=== PATIENT | female | born 1995 | race Two or more races ===

== ENCOUNTER 2024-03-22 04:46 | Inpatient (IN) | payer OTHER ==
[~2024-03-22] VITALS: Ht 152.4 cm; Wt 77.6 kg
[2024-03-22] VITALS (9 sets, daily range): BP systolic 102–139; BP diastolic 62–86
[2024-03-22] MEDS ORDERED: RINGERS SOLUTION,LACTATED 1,000 ML IV SCH (05:00)
[2024-03-22 05:52] LABS: HEMATOCRIT 34.1 % (36.0-45.00); HEMOGLOBIN 11.5 g/dL (12.0-15.00); MEAN CELL VOLUME 81.4 fL (80.00-100.00); MEAN CORPUSCULAR HEMOGLOBIN 27.4 pg (27.00-32.0); MEAN CORPUSCULAR HGB CONC 33.6 g/dl (32.0-36.0); PLATELET COUNT 177 K/uL (150-450); RED BLOOD COUNT 4.19 M/uL (4.00-6.00); RED CELL DISTRIBUTION WIDTH 13.2 % (11.5-14.5)
[2024-03-22 05:53] LABS: PH,URINE 6.5 (5.0-8.0); URINE APPEARANCE Clear; URINE BILIRRUBIN Negative (NEGATIVE); URINE BLOOD Negative; URINE COLOR Yellow; URINE GLUCOSE Negative (NEGATIVE); URINE KETONE Negative (NEGATIVE); URINE LEUKOCYTE Moderate; URINE NITRATE Negative; URINE PROTEIN Negative (NEGATIVE)
[2024-03-22 05:56] LABS: URINE BACTERIA 924.7 uL (0.0-1933); URINE EPITHELIAL CELLS 21.7 uL (0.0-38.8); URINE RBC 15.4 uL (0.0-20.8); URINE WBC 66.3 uL (0.0-23.2)
[2024-03-22 05:57] LABS: URINE CAST 0.15 uL (0.0-1.40)
[2024-03-22 06:08] LABS: INR < 0.93; PARTIAL THROMBOPLASTIN TIME 26.3 SECONDS (22.0-34.0); PROTHROMBIN TIME 10.2 SECONDS (9.0-11.5)
[2024-03-22 06:26] LABS: ALBUMIN 2.9 gm/dL (3.4-5.0); BILIRUBIN TOTAL 1.2 mg/dL (0.3-1.2); CALCIUM 8.6 mg/dL (8.5-10.1); CREATININE SERUM 0.5 mg/dL (0.55-1.02); GLOBULINA 3.7 G/DL (2.4-3.5); POTASSIUM 3.8 mEq/L (3.5-5.1); TOTAL PROTEIN 6.6 gm/dL (6.4-8.2)
[2024-03-22] MEDS ORDERED: OXYTOCIN 500 ML IV SCH (08:30)
[2024-03-22] MEDS ORDERED: MEPERIDINE HCL/PF 50 MG/ML VIAL IV ONE (11:15)
[2024-03-22] MEDS ORDERED: PROMETHAZINE HCL 25 MG/ML AMPUL IV NR (11:15)
[2024-03-22] MEDS ORDERED: ERYTHROMYCIN BASE OPHT 1GM EACH TUBE OP ONE (16:00)
[2024-03-22] MEDS ORDERED: BENZOCAINE/MENTHOL 90 ML BOTTLE TOP SCH (16:00)
[2024-03-22] MEDS ORDERED: ACETAMINOPHEN 500 MG GEL..CAP PO PRN (16:00)
[2024-03-22] MEDS ORDERED: CHLORHEXIDINE GLUCONATE 120 ML BOTTLE TOP SCH (16:00)
[2024-03-22] MEDS ORDERED: OXYTOCIN 1,000 ML IV SCH (16:00)
[2024-03-22] MEDS ORDERED: IBUprofen 400 MG TABLET PO PRN (16:00)
[2024-03-22] MEDS ORDERED: LIDOCAINE HCL 1% 10ML VIAL PERCUT ONE (16:00)
[2024-03-23 07:46] VITALS: BP 125/83
[2024-03-23 16:10] VITALS: BP 121/79
[2024-03-24] VITALS: BP 124/82
[2024-03-24 08:07] VITALS: BP 107/73
[2024-03-24] MEDS ORDERED: NAPR500T14 PO (09:04)
[2024-03-24] MEDS ORDERED: COLACE100 MG PO (09:04)
== END 2024-03-24 12:56 | disposition home or self-care (01) | DRG 807 ==
LOC: LDR 04:46 → OB/GYN 04:46
PROVIDERS: ADMIT Obstetrics & Gynecology; ATTEND Obstetrics & Gynecology
PROC: 10E0XZZ Delivery of Products of Conception, External Approach (ICD-10-PCS; principal; 2024-03-22)
PROC: 0KQM0ZZ Repair Perineum Muscle, Open Approach (ICD-10-PCS; 2024-03-22)
PROC: 4A1HXCZ Monitoring of Products of Conception, Cardiac Rate, External Approach (ICD-10-PCS; 2024-03-22)
DX: O70.1 Second degree perineal laceration during delivery (principal); Z37.0 Single live birth; Z3A.38 38 weeks gestation of pregnancy; Z20.822 Contact with and (suspected) exposure to COVID-19

== ENCOUNTER 2024-04-30 06:41 | Day surgery (SDC) | payer OTHER ==
[2024-04-23 08:26] VITALS: BP 122/87
[2024-04-23 09:09] LABS: HEMATOCRIT 40.6 % (36.0-45.00); HEMOGLOBIN 13.6 g/dL (12.0-15.00); MEAN CELL VOLUME 80.1 fL (80.00-100.00); MEAN CORPUSCULAR HEMOGLOBIN 26.9 pg (27.00-32.0); MEAN CORPUSCULAR HGB CONC 33.5 g/dl (32.0-36.0); PLATELET COUNT 222 K/uL (150-450); RED BLOOD COUNT 5.06 M/uL (4.00-6.00); RED CELL DISTRIBUTION WIDTH 14.6 % (11.5-14.5)
[2024-04-23 09:10] LABS: PH,URINE 5.5 (5.0-8.0); URINE APPEARANCE Clear; URINE BILIRRUBIN Negative (NEGATIVE); URINE BLOOD Moderate; URINE COLOR Yellow; URINE GLUCOSE Negative (NEGATIVE); URINE KETONE Negative (NEGATIVE); URINE LEUKOCYTE Moderate; URINE NITRATE Negative; URINE PROTEIN Negative (NEGATIVE); URINE UROBILINOGEN 0.2 E.U./dl
[2024-04-23 09:15] LABS: URINE BACTERIA 187.2 uL (0.0-1933); URINE EPITHELIAL CELLS 9.9 uL (0.0-38.8); URINE RBC 169.4 uL (0.0-20.8); URINE WBC 259.5 uL (0.0-23.2)
[2024-04-23 09:21] LABS: URINE CAST 0.44 uL (0.0-1.40)
[2024-04-23 09:29] LABS: INR 0.96; PARTIAL THROMBOPLASTIN TIME 29.7 SECONDS (22.0-34.0); PROTHROMBIN TIME 10.5 SECONDS (9.0-11.5)
[2024-04-23 09:44] LABS: BILIRUBIN TOTAL 1.19 mg/dL (0.3-1.2); CALCIUM 9.5 mg/dL (8.5-10.1); CREATININE SERUM 0.76 mg/dL (0.55-1.02); GFR 91.29; GLOBULINA 3.6 G/DL (2.4-3.5); POTASSIUM 4.32 mEq/L (3.5-5.1); TOTAL PROTEIN 7.6 gm/dL (6.4-8.2)
[~2024-04-30] VITALS: Ht 152.4 cm; Wt 70.3 kg
[~2024-04-30 06:41] MED LIST: COLACE100 MG PO; NAPR500T14 PO
[2024-04-30] MEDS ORDERED: GENTAMICIN SULFATE 40 MG/ML VIAL ONE (15:04)
[2024-04-30] MEDS ORDERED: POVIDONE-IODINE 118 ML BOTT TOP ONE (16:39)
[2024-04-30] MEDS ORDERED: TRAM1TAB98 PO (18:17)
[2024-04-30] MEDS ORDERED: METOCLOPRAMIDE HCL 5 MG/ML VIAL ONE (19:51)
[2024-04-30] MEDS ORDERED: ACETAMINOPHEN 500 MG GEL..CAP PO ONE (19:51)
[2024-04-30] MEDS ORDERED: CEFAZOLIN SODIUM 1,000 MG VIAL ONE (19:51)
[2024-04-30] MEDS ORDERED: SIMETHICONE 125 MG CAPSULE PO ONE (19:51)
[2024-04-30 22:40] VITALS: BP 118/77; O2SAT 100
== END 2024-04-30 22:05 | disposition home or self-care (01) ==
LOC: CIR.AMB 06:41
PROVIDERS: ATTEND Obstetrics & Gynecology
DX: Z30.2 Encounter for sterilization (principal); Z88.6 Allergy status to analgesic agent; Z88.0 Allergy status to penicillin